=== PATIENT | male | born 1975 | race Caucasian/White ===

== ENCOUNTER 2023-06-16 13:03 | Emergency (ER) | payer OTHER ==
--- OUTSIDE RECORDS SUMMARY | 2023-06-16 13:09 | XMS REPORT | Continuity of Care Document ---
:1975 Author Organization [facility] t Address [address] [place] [address] Care Team Providers Name Role Phone GIL YAN Primary Care Physician Unavailable GIL YAN Attending Clinician Unavailable Earnest Dodge MD Attending Clinician HIREN RUCKER Attending Clinician Unavailable Johnson Rolle MD Attending Clinician Laurita Jimenes LVN Attending Clinician Unavailable Angela Arnold MD Attending Clinician Laurita Torrez RN Attending Clinician Unavailable Nasima Hagen RN Attending Clinician Unavailable Luci Wan RN Attending Clinician Unavailable Jesi Diaz LVN Attending Clinician Unavailable Kyle Lopez MD Attending Clinician GIL YAN Attending Clinician Unavailable HERLINDA SCRUGGS Attending Clinician Unavailable JODI LARSEN Attending Clinician Unavailable ALETHEA LOO Attending Clinician Unavailable GUIDO KRUGER Attending Clinician Unavailable ILDEFONSO ACUNA Attending Clinician Unavailable EITAN CRUM Attending Clinician Unavailable JUAN MUNOZ Attending Clinician Unavailable EHSAN BORDEN Attending Clinician Unavailable EDWIN MADRIGAL Attending Clinician Unavailable EKATERINA BARLOW Attending Clinician Unavailable JENNIFER HUYNH Attending Clinician Unavailable RAQUEL PEÑA Attending Clinician Unavailable EITAN CRUM Attending Clinician Unavailable JANY KAUR Attending Clinician Unavailable MIHAELA DAVEY Attending Clinician Unavailable DEVON GUO Attending Clinician Unavailable SUAD MORE Attending Clinician Unavailable GIL YAN Admitting Clinician Unavailable Payers Payer Name Policy Type Policy Number Effective Date Expiration Date Robbin goldberg [facility] [id number] [id number] 2021 ASSISTANCE PROGRAM 00:00:00 00:00:00 [employer] SSI [id number] 2021 00:00:00 TP13 SSI RECIPIENT [id number] 2020 2021 00:00:00 00:00:00 Problems Condition Condition Condition Status Onset Resolution Last Treating Co mments Source Name Details Category Date Date Treatment Clinician Date BMI BMI Disease Active [facility] 40.0-44.9, 40.0-44.9, 04-09 He alth adult adult 00:00: 00 Anxiety Anxiety Disease Active and and 04-09 Health depression depression 00:00: 00 Chronic Chronic Disease Active [facility] gout of gout of 04-09 Health multiple multiple 00:00: sites sites 00 Acute gout Acute gout Disease Active U T of of 09-11 Health multiple multiple 00:00: sites sites 00 Allergies Allergies Disease Active UT 09-11 Health 00:00: 00 Eczema Eczema Disease Active UT 09-11 Health 00:00: 00 Generalize Generalize Disease Active U T d OA d OA 09-11 Health 00:00: 00 Lumbosacra Lumbosacra Disease Active U T l l 09-11 Health radiculopa radiculopa 00:00: thy thy 00 Mixed Mixed Disease Active UT hyperlipid hyperlipid 09-11 He alth emia emia 00:00: 00 Class 3 Class 3 Disease Active UT severe severe 09-11 Health obesity obesity 00:00: due to due to 00 excess excess calories calories with with serious serious comorbidit comorbidit y and body y and body mass index mass index (BMI) of (BMI) of 50.0 to 50.0 to 59.9 in 59.9 in adult adult Chronic Chronic Disease Active [facility] idiopathic idiopathic 8-18 He alth gout gout 00:00: 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 Disease Active [facility] idiopathic idiopathic 8-18 He alth gout gout 00:00: involving involving 00 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 Gout Gout Disease Recurre [place] nce 02-05 Health 00:00: 00 Essential Essential Disease Recurre Khan rris hypertensi hypertensi nce 02-05 He alth on on 00:00: 00 Wound Wound Disease Active [place] cellulitis cellulitis 02-05 He alth 00:00: 00 Hyperglyce Hyperglyce Disease Active H arris nilam nilam 02-05 Health 00:00: 00 Elevated Elevated Disease Active Harri s serum serum 02-05 Health creatinine creatinine 00:00: 00 Cellulitis Cellulitis Disease Active H arris 02-05 Health 00:00: 00 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 0-19 Health depressive depressive 00:00: disorder disorder 00 Cannabis Cannabis Disease Active 2019-07 [facility] use use 0- Health disorder, disorder, 00:00: mild, mild, 00 abuse abuse No known No known Disease UT active active Health problems problems Allergies, Adverse Reactions, Alerts Allergy Allergy Status Severity Reaction(s) Onset Inactive Treating Comm ents Source Name Type Date Date Clinician Caroline Baerensi Active Cough UT il ty to 12-05 Health adverse 00:00: reaction 00 s No Known DA Active [facility] Allergie 08-12 Clear s 00:00: Tomas 00 [facility] Family History Family Member Diagnosis Comments Start Date Stop Date Source Natural father Hypertension [facility] Natural mother Cancer [facility] Natural mother Diabetes [facility] Social History Social Habit Start Date Stop Date Quantity Comments Source History of tobacco 1995-07-13 Cigarette Smoker [facility] use 00:00:00 Sexual orientation [facility] History of Social 2023-06-02 2023-06-02 [facility] function 00:00:00 00:00:00 Exposure to 2022-09-06 2022-09-16 Not sure [facility] SARS-CoV-2 (event) 00:00:00 16:03:00 History SDOH 2022-09-16 2022-09-16 1 [facility] Alcohol Frequency 00:00:00 00:00:00 History SDOH 2022-09-16 2022-09-16 0 [facility] Alcohol Std Drinks 00:00:00 00:00:00 History SDOH 2022-09-16 2022-09-16 1 [facility] Alcohol Binge 00:00:00 00:00:00 History SDOH Food 2022-09-16 2022-09-16 1 [facility] Worry 00:00:00 00:00:00 History SDOH Food 2022-09-16 2022-09-16 1 [facility] Scarcity 00:00:00 00:00:00 Cigarette 2022-01-20 2022-01-20 [facility] pack-years 00:00:00 00:00:00 Cigarettes smoked 2022-01-20 2022-01-20 [facility] current (pack per 00:00:00 00:00:00 day) - Reported Tobacco use and 2022-01-20 2022-01-20 Smokeless tobacco [facility] exposure 00:00:00 00:00:00 non-user Alcohol intake 2021-09-12 2021-09-[address] [facility] Health 00:00:00 00:00:00 alcohol (finding) Alcohol Comment 2021-02-05 2021-02-05 OCCASIONALLY [facility] 00:00:00 00:00:00 Tobacco Comment 2020-09-03 2020-09-03 pt not ready to [facility] 00:00:00 00:00:00 quit smoking Sex Assigned At [birth year] [facility] alth 00:00:00 00:00:00 Smoking Status Start Date Stop Date Source Smokes tobacco daily 2022-01-20 00:00:00 [facility] Medications Ordered Filled Start Stop Current Ordering Indication Dosage Frequency Signature Comments Components Source Medication Medication Date Date Medication? Clinician (SIG) Name Name methylPREDN 2022- No 80mg [place] ISolone 03-31 Health acetate 19:00: 19:17 (DEPO-Medro 00 :00 l) injection 80 mg methylPREDN 2022- No 80mg 80 mg, [facility] ISolone 03-31 Intramuscu Healt h acetate 19:00: 19:17 lar, Once, (DEPO-Medro 00 :00 On Thu) 03/31/23 at injection 1400, For 80 mg 1 dose
In dications: acute gout flare up predniSONE Yes [id number] Take 3 U T (Deltasone) 03-31 tablets Healt h 10 MG 00:00: BID for 2 tablet 00 days, than take 2 tablets BID for 2 days, than take 1 tablet BID for 2 days. colchicine 2023- Yes [id number] .6mg QD Take 1 UT (Colcrys) 03-31 tablet Health 0.6 MG 00:00: 04:59 (0.6 mg tablet 00 :00 total) by mouth 1 (one) time each day. allopurinol 2023- Yes [id number] 300mg QD Take 1 UT (Zyloprim) 03-31 tablet Health 300 MG 00:00: 04:59 (300 mg tablet 00 :00 total) by mouth 1 (one) time each day. DULoxetine 2023- Yes [id number] 60mg QD Take 1 UT (Cymbalta) 03-31 capsule Healt h [address] 00:00: 04:59 (60 mg capsule 00 :00 total) by mouth 1 (one) time each day. gabapentin 2023- Yes [id number] 300mg Q.[id number] Take 1 UT (Neurontin) 03-31 [id number] capsule Health 300 MG 00:00: 04:59 3D (300 mg capsule 00 :00 total) by mouth in the morning and 1 capsule (300 mg total) at noon and 1 capsule (300 mg total) in the evening. triamcinolo 2022- Yes [id number] Q.5D Apply UT ne 03-31 topically Health (Kenalog) 00:00: 04:59 2 (two) 0.1 % cream 00 :00 times a day for 14 days. Apply to affected area 1-2 times daily as needed. gabapentin 2022- No [id number] 300mg Q.[id number] Take 1 UT (Neurontin) 9-19 -19 [id number] capsule Health 300 MG 00:00: 00:00 3D (300 mg capsule 00 :00 total) by mouth in the morning and 1 capsule (300 mg total) at noon and 1 capsule (300 mg total) in the evening. baclofen 2022-0 Yes [id number] TAKE ONE UT (Lioresal) 6-16 TABLET BY Heal th 10 MG 00:00: MOUTH tablet 00 EVERY MORNING AND TAKE ONE TABLET BY MOUTH EVERY EVENING colchicine 2022-0 2022- No [id number] TAKE ONE UT 0.6 MG 6-16 -19 TABLET BY Health tablet 00:00: 00:00 MOUTH 00 :00 DAILY losartan-hy 0 Yes [id number] 1{tbl} QD Take 1 UT droCHLOROth 5-25 tablet by [facility] iazide 00:00: mouth 1 (Hyzaar) 00 (one) time 50-12.5 MG each day. tablet furosemide 2022-0 Yes 20mg QD Take 20 mg H arris (LASIX) 20 4-03 by mouth Healt h mg tablet 15:33: daily. 10 losartan-hy 0 Yes [id number] 1{tbl} QD Take 1 UT droCHLOROth 3-07 tablet by [facility] iazide 00:00: mouth 1 (Hyzaar) 00 (one) time 100-25 MG each day. tablet ibuprofen 2022-0 Yes [id number] 800mg Take 1 U T 800 MG 3-07 tablet Health tablet 00:00: (800 mg 00 total) by mouth every 8 (eight) hours if needed for moderate pain. ibuprofen 2022-0 Yes [id number] 800mg Take 1 U T 800 MG 3-07 tablet Health tablet 00:00: (800 mg 00 total) by mouth every 8 (eight) hours if needed for moderate pain. allopurinol 0 2023- No [id number] 300mg QD Take 1 UT (Zyloprim) 3-07 03-07 tablet Health 300 MG 00:00: 05:59 (300 mg tablet 00 :00 total) by mouth 1 (one) time each day. allopurinol 2022- No [id number] 300mg QD Take 1 UT (Zyloprim) 09-16 tablet Health 300 MG 00:00: 00:00 (300 mg tablet 00 :00 total) by mouth 1 (one) time each day. gabapentin 2022- No [id number] 300mg Take 1 UT (Neurontin) 09-16 capsule Heal th 300 MG 00:00: 00:00 (300 mg capsule 00 :00 total) by mouth every night. DULoxetine 2022- No [id number] 60mg QD Take 1 UT (Cymbalta) 09-16 capsule Healt h [address] 00:00: 00:00 (60 mg capsule 00 :00 total) by mouth 1 (one) time each day. gabapentin 2022- No [id number] 300mg Take 1 UT (Neurontin) 09-16 capsule Heal th 300 MG 00:00: 04:59 (300 mg capsule 00 :00 total) by mouth every night. DULoxetine 2022- No [id number] 60mg QD Take 1 UT (Cymbalta) 09-16 capsule Healt h [address] 00:00: 04:59 (60 mg capsule 00 :00 total) by mouth 1 (one) time each day. baclofen 2022- No [id number] 10mg Q.5D Take 1 U T (Lioresal) 09-16 tablet (10 He alth 10 MG 00:00: 04:59 mg total) tablet 00 :00 by mouth in the morning and 1 tablet (10 mg total) in the evening. loratadine Yes [id number] 10mg QD Take 1 UT (Claritin) 2-17 tablet (10 Hea lth 10 MG 00:00: mg total) tablet 00 by mouth 1 (one) time each day. loratadine 2022- No [id number] 10mg QD Take 1 UT (Claritin) 2-17 05-19 tablet (10 He alth 10 MG 00:00: 04:59 mg total) tablet 00 :00 by mouth 1 (one) time each day. losartan-hy 2022- No [id number] TAKE ONE UT droCHLOROth 2-10 07 TABLET BY He alth iazide 00:00: 00:00 MOUTH (Hyzaar) 00 :00 DAILY 100-25 MG tablet allopurinol 2022- No 300mg 300 mg. U T (Zyloprim) 08-22 Health 100 MG 00:00: 00:00 tablet 00 :00 ibuprofen 2022- No [id number] 800mg Take 1 UT 800 MG 07-18 tablet Health tablet 00:00: 00:00 (800 mg 00 :00 total) by mouth every 8 (eight) hours if needed for moderate pain. DULoxetine 2022- No [id number] 60mg QD Take 1 UT (Cymbalta) 07-18 capsule Healt h [address] 00:00: 00:00 (60 mg capsule 00 :00 total) by mouth 1 (one) time each day. furosemide 2021- No 20mg QD Take 20 mg UT (Lasix) 20 03-20 by mouth 1 He alth MG tablet 09:22: 00:00 (one) time 38 :00 each day. allopurinol 2021- No [id number] 200mg QD Take 2 UT (Zyloprim) 01-24-14 tablets Healt h 100 MG 00:00: 04:59 (200 mg tablet 00 :00 total) by mouth 1 (one) time each day. allopurinol 2021- No [id number] 200mg QD Take 2 UT (Zyloprim) 01-24-14 tablets Healt h 100 MG 00:00: 04:59 (200 mg tablet 00 :00 total) by mouth 1 (one) time each day. allopurinol 2021- No [id number] 200mg QD Take 2 UT (Zyloprim) 01-24-14 tablets Healt h 100 MG 00:00: 04:59 (200 mg tablet 00 :00 total) by mouth 1 (one) time each day. furosemide Yes 20mg QD Take 20 mg U T (Lasix) 20 7-11 by mouth 1 Hea lth MG tablet 08:09: (one) time 06 each day. furosemide Yes 20mg QD Take 20 mg U T (Lasix) 20 7-11 by mouth 1 Hea lth MG tablet 08:09: (one) time 06 each day. furosemide Yes 20mg QD Take 20 mg U T (Lasix) 20 7-11 by mouth 1 Hea lth MG tablet 08:09: (one) time 06 each day. furosemide 0 Yes 20mg QD Take 20 mg U T (Lasix) 20 7-11 by mouth 1 Hea lth MG tablet 08:09: (one) time 06 each day. Elastic Yes [id number] Fixed UT Bandages & 01-20 [id number] neutral Heal th Supports 00:00: wrist (Wrist 00 splint to Splint/Cock be worn at -Up/Right night M) misc during sleep only. Elastic Yes [id number] Fixed [facility] Bandages & 01-20 [id number] neutral Heal th Supports 00:00: wrist (Wrist 00 splint to Splint/Cock be worn at -Up/Left M) night misc during sleep only. Elastic Yes [id number] Fixed [facility] Bandages & 01-20 [id number] neutral Heal th Supports 00:00: wrist (Wrist 00 splint to Splint/Cock be worn at -Up/Right night M) misc during sleep only. Elastic Yes [id number] Fixed [facility] Bandages & 01-20 [id number] neutral Heal th Supports 00:00: wrist (Wrist 00 splint to Splint/Cock be worn at -Up/Left M) night misc during sleep only. Elastic Yes [id number] Fixed [facility] Bandages & 01-20 [id number] neutral Heal th Supports 00:00: wrist (Wrist 00 splint to Splint/Cock be worn at -Up/Right night M) misc during sleep only. Elastic Yes [id number] Fixed [facility] Bandages & 01-20 [id number] neutral Heal th Supports 00:00: wrist (Wrist 00 splint to Splint/Cock be worn at -Up/Left M) night misc during sleep only. Elastic Yes [id number] Fixed [facility] Bandages & 01-20 [id number] neutral Heal th Supports 00:00: wrist (Wrist 00 splint to Splint/Cock be worn at -Up/Right night M) misc during sleep only. Elastic Yes [id number] Fixed UT Bandages & 11 [id number] neutral Heal th Supports 00:00: wrist (Wrist 00 splint to Splint/Cock be worn at -Up/Left M) night misc during sleep only. amLODIPine No [id number] 5mg QD Take 1 UT ([facility]vas) 5 01-15 tablet (5 He alth MG tablet 00:00: 00:00 mg total) 00 :00 by mouth 1 (one) time each day. amLODIPine No [id number] 5mg QD Take 1 [facility] ([facility]) 5 01-15 tablet (5 He alth MG tablet 00:00: 05:59 mg total) 00 :00 by mouth 1 (one) time each day. amLODIPine [id number] 5mg QD Take 1 [facility] ([facility]) 5 01-15 tablet (5 He alth MG tablet 00:00: 05:59 mg total) 00 :00 by mouth 1 (one) time each day. amLODIPine No [id number] 5mg QD Take 1 [facility] ([facility]) 5 01-15 tablet (5 He alth MG tablet 00:00: 05:59 mg total) 00 :00 by mouth 1 (one) time each day. amLODIPine No [id number] 5mg QD Take 1 [facility] ([facility]) 5 01-15 tablet (5 He alth MG tablet 00:00: 05:59 mg total) 00 :00 by mouth 1 (one) time each day. losartan- No [id number] 1{tbl} QD Take 1 UT droCHLOROth 01-15 tablet by He alth iazide 00:00: 04:59 mouth 1 (Hyzaar) 00 :00 (one) time 100-25 MG each day. tablet losartan-hy No [id number] 1{tbl} QD Take 1 UT droCHLOROth 01-15 tablet by He alth iazide 00:00: 04:59 mouth 1 (Hyzaar) 00 :00 (one) time 100-25 MG each day. tablet losartan- No [id number] 1{tbl} QD Take 1 UT droCHLOROth 7- 10-05 tablet by He alth iazide 00:00: 04:59 mouth 1 (Hyzaar) 00 :00 (one) time 100-25 MG each day. tablet losartan-hy 2021- No [id number] 1{tbl} QD Take 1 UT droCHLOROth 7- 10-05 tablet by He alth iazide 00:00: 04:59 mouth 1 (Hyzaar) 00 :00 (one) time 100-25 MG each day. tablet sulfamethox 2021- No [id number] 1{tbl} Q.5D Take 1 UT azole-trime 01-15 07-17 tablet by He alth thoprim 00:00: 04:59 mouth in (Bactrim 00 :00 the DS) 800-160 morning MG tablet and 1 tablet in the evening. Do all this for 10 days. colchicine 2022- No [id number] .6mg QD Take 1 UT 0.6 MG 7-11 10-02 tablet Health tablet 00:00: 05:59 (0.6 mg 00 :00 total) by mouth 1 (one) time each day. colchicine 2022- No [id number] .6mg QD Take 1 UT 0.6 MG 7-11 10-02 tablet Health tablet 00:00: 05:59 (0.6 mg 00 :00 total) by mouth 1 (one) time each day. colchicine 2022- No [id number] .6mg QD Take 1 UT 0.6 MG 7-11 10-02 tablet Health tablet 00:00: 05:59 (0.6 mg 00 :00 total) by mouth 1 (one) time each day. colchicine 2022- No [id number] .6mg QD Take 1 UT 0.6 MG 7-05 -02 tablet Health tablet 00:00: 05:59 (0.6 mg 00 :00 total) by mouth 1 (one) time each day. colchicine 2022- No [id number] .6mg QD Take 1 UT 0.6 MG 7-11 10-02 tablet Health tablet 00:00: 05:59 (0.6 mg 00 :00 total) by mouth 1 (one) time each day. baclofen 2-0 Yes [id number] 10mg Q.5D Take 1 UT (Lioresal) 5-26 tablet (10 Hea lth 10 MG 00:00: mg total) tablet 00 by mouth 2 (two) times a day. ibuprofen 2-0 Yes [id number] 800mg Take 1 U T 800 MG 5-26 tablet Health tablet 00:00: (800 mg 00 total) by mouth every 8 (eight) hours if needed for moderate pain. baclofen 2022-0 Yes [id number] 10mg Q.5D Take 1 UT (Lioresal) 5-26 tablet (10 Hea lth 10 MG 00:00: mg total) tablet 00 by mouth 2 (two) times a day. ibuprofen 2021-0 Yes [id number] 800mg Take 1 U T 800 MG 5-26 tablet Health tablet 00:00: (800 mg 00 total) by mouth every 8 (eight) hours if needed for moderate pain. baclofen 2-0 Yes [id number] 10mg Q.5D Take 1 UT (Lioresal) 5-26 tablet (10 Hea lth 10 MG 00:00: mg total) tablet 00 by mouth 2 (two) times a day. ibuprofen 2-0 Yes [id number] 800mg Take 1 U T 800 MG 5-26 tablet Health tablet 00:00: (800 mg 00 total) by mouth every 8 (eight) hours if needed for moderate pain. ibuprofen 2-0 Yes [id number] 800mg Take 1 U T 800 MG 5-26 tablet Health tablet 00:00: (800 mg 00 total) by mouth every 8 (eight) hours if needed for moderate pain. baclofen 2-0 Yes [id number] 10mg Q.5D Take 1 UT (Lioresal) 5-26 tablet (10 Hea lth 10 MG 00:00: mg total) tablet 00 by mouth 2 (two) times a day. ibuprofen 2022-0 Yes [id number] 800mg Take 1 U T 800 MG 5-26 tablet Health tablet 00:00: (800 mg 00 total) by mouth every 8 (eight) hours if needed for moderate pain. baclofen 2022-0 2023- No [id number] 10mg Q.5D Take 1 U T (Lioresal) 5-26 03-07 tablet (10 He alth 10 MG 00:00: 00:00 mg total) tablet 00 :00 by mouth 2 (two) times a day. gabapentin No [id number] 300mg Take 1 UT (Neurontin) 12-05- capsule Heal th 300 MG 00:00: 00:00 (300 mg capsule 00 :00 total) by mouth every night. DULoxetine No [id number] 60mg QD Take 1 UT (Cymbalta) 12-05 capsule Healt h [address] 00:00: 05:59 (60 mg capsule 00 :00 total) by mouth 1 (one) time each day. allopurinol No [id number] 100mg QD Take 1 UT (Zyloprim) 12-05 tablet Health 100 MG 00:00: 05:59 (100 mg tablet 00 :00 total) by mouth 1 (one) time each day. gabapentin No [id number] 300mg Take 1 UT (Neurontin) 12-05 capsule Heal th 300 MG 00:00: 05:59 (300 mg capsule 00 :00 total) by mouth every night. DULoxetine No [id number] 60mg QD Take 1 UT (Cymbalta) 12-05 capsule Healt h [address] 00:00: 05:59 (60 mg capsule 00 :00 total) by mouth 1 (one) time each day. allopurinol No [id number] 100mg QD Take 1 UT (Zyloprim) 12-05 tablet Health 100 MG 00:00: 05:59 (100 mg tablet 00 :00 total) by mouth 1 (one) time each day. gabapentin No [id number] 300mg Take 1 UT (Neurontin) 12-05 capsule Heal th 300 MG 00:00: 05:59 (300 mg capsule 00 :00 total) by mouth every night. DULoxetine 2021- No [id number] 60mg QD Take 1 UT (Cymbalta) 12-05 capsule Healt h [address] 00:00: 05:59 (60 mg capsule 00 :00 total) by mouth 1 (one) time each day. gabapentin 2021- No [id number] 300mg Take 1 UT (Neurontin) 12-05 capsule Heal th 300 MG 00:00: 05:59 (300 mg capsule 00 :00 total) by mouth every night. DULoxetine 2021- No [id number] 60mg QD Take 1 UT (Cymbalta) 12-05 capsule Healt h [address] 00:00: 05:59 (60 mg capsule 00 :00 total) by mouth 1 (one) time each day. gabapentin 2021- No [id number] 300mg Take 1 UT (Neurontin) 12-05 capsule Heal th 300 MG 00:00: 05:59 (300 mg capsule 00 :00 total) by mouth every night. DULoxetine 2021- No [id number] 60mg QD Take 1 UT (Cymbalta) 12-05 capsule Healt h [address] 00:00: 05:59 (60 mg capsule 00 :00 total) by mouth 1 (one) time each day. gabapentin 2021- No [id number] 300mg Take 1 UT (Neurontin) 12-05 capsule Heal th 300 MG 00:00: 05:59 (300 mg capsule 00 :00 total) by mouth every night. losartan 2021- No [id number] 100mg QD Take 1 U T (Cozaar) 12-05- tablet Health 100 MG 00:00: 00:00 (100 mg tablet 00 :00 total) by mouth 1 (one) time each day. loratadine Yes UT (Claritin) 5-20 Health 10 MG 00:00: tablet 00 loratadine Yes UT (Claritin) 5-20 Health 10 MG 00:00: tablet 00 loratadine Yes UT (Claritin) 5-20 Health 10 MG 00:00: tablet 00 loratadine Yes UT (Claritin) 5-20 Health 10 MG 00:00: tablet 00 loratadine Yes UT (Claritin) 5-20 Health 10 MG 00:00: tablet 00 atorvastati Yes UT n (Lipitor) 3-07 Health 20 MG 00:00: tablet 00 atorvastati Yes UT n (Lipitor) 09-16 Health 20 MG 00:00: tablet 00 atorvastati 0 Yes UT n (Lipitor) 09-16 Health 20 MG 00:00: tablet 00 atorvastati 0 Yes UT n (Lipitor) 09-16 Health 20 MG 00:00: tablet 00 atorvastati Yes Mixed 20mg Take 1 Jose J ris n (LIPITOR) 09-16 hyperlipide tablet by [facility] 20 mg 00:00: nilam mouth at tablet 00 bedtime nightly atorvastati 0 2021- No UT n (Lipitor) 09-16 09 Health 20 MG 00:00: 00:00 tablet 00 :00 amLODIPine Yes Hypertensio 5mg QD Take 1 Mark (NORVASC) 5 3 n, tablet by [facility] mg tablet 00:00: unspecified mouth 00 type daily allopurinoL Yes Idiopathic 100mg QD Take 1 Mark (ZYLOPRIM) 3 gout, tablet by [facility] lt 100 mg 00:00: unspecified mouth tablet 00 chronicity, daily unspecified site colchicine Yes .6mg QD Take 1 Harri s (COLCRYS) 303 tablet by [facility] 0.6 mg 00:00: mouth tablet 00 daily losartan Yes Essential 100mg QD Take 1 H arris (COZAAR) 3 hypertensio tablet by [facility] 100 mg 00:00: n mouth tablet 00 daily. DULoxetine Yes Recurrent 60mg QD Take 1 Mark (CYMBALTA) 2-22 major capsule by [facility] 60 mg 00:00: depressive mouth delayed 00 disorder, daily release in capsule remission gabapentin Yes Lumbosacral 300mg Take 1 Mark (NEURONTIN) 2-11 radiculopat capsule by [facility] 300 mg 00:00: hy mouth 3 capsule 00 times daily. ibuprofen Yes Generalized 800mg Take 1 Mark (MOTRIN) 2-11 OA tablet by [facility] 800 mg 00:00: mouth tablet 00 every 8 hours as needed for Pain loratadine Yes Allergy, 10mg QD Take 1 H arris (CLARITIN) 8-23 initial tablet by ealth 10 mg 00:00: encounter mouth tablet 00 daily. Miscellaneo Yes Acute gout by [facility] 03-04 of universal health services Mis.(Non- Health Supply Mis 00:00: sites, Drug; 00 unspecified Combo cause Route) route PARKING PLACARD.. Miscellaneo Yes Difficulty Walker.. [facility] 03-04 walking Health Supply [facility] [place]: 00 aspirin 325 Yes 325mg Q.5D Take 325 U T MG tablet 7-31 mg by [facility] 00:00: mouth 00 twice a day. aspirin 325 Yes 325mg Q.5D Take 325 U T MG tablet 7-31 mg by [facility] 00:00: mouth 00 twice a day. aspirin 325 Yes 325mg Q.5D Take 325 U T MG tablet 7-31 mg by [facility] 00:00: mouth 00 twice a day. aspirin 325 Yes 325mg Q.5D Take 325 U T MG tablet 7-31 mg by [facility] 00:00: mouth 00 twice a day. aspirin 325 Yes 325mg Q.5D Take 325 U T MG tablet 7-31 mg by [facility] 00:00: mouth 00 twice a day. aspirin 325 Yes Wound 325mg Q.5D Take 1 rris mg tablet 7-31 cellulitis tablet by [facility] 00:00: mouth 2 00 times daily. traMADoL Yes Wound 50mg Take 1 [place] (ULTRAM) 50 7-31 cellulitis tablet by [facility] mg tablet 00:00: mouth 00 every 8 hours as needed (breakthro ugh pain). baclofen Yes Back muscle 10mg Q.5D Take 1 [place] (LIORESAL) 5-27 spasm tablet by [facility] lt 10 mg 00:00: mouth 2 tablet 00 times daily. 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 cream loratadine Yes Allergic 10mg QD Take 1 H arris (CLARITIN) 5-28 state, tablet by He alth 10 mg 00:00: initial mouth tablet 00 encounter daily. Immunizations Ordered Immunization Filled Immunization Date Status Commen ts Source Name Name Tdap 2018-07-13 Completed [facility] 00:00:00 Tdap 2018-07-13 Completed [facility] 00:[facility]:00 Tdap 2018-07-13 Completed [facility] 00:00:00 Tdap 2018-07-13 Completed [facility] 00:00:00 Tdap 2018-07-13 Completed [facility] 00:00:00 Tdap 2018-07-13 Completed [facility] 00:00:00 Tdap Unknown Completed [facility] Vital Signs Vital Name Observation Time Observation Value Comments Source Systolic blood pressure 2023-03-31 18:35:00 136 mm[Hg] [facility] Diastolic blood pressure 2023-03-31 18:35:00 80 mm[Hg] [facility] Heart rate 2023-03-31 18:35:00 81 [facility] 2023-03-31 18:35:00 36.67 [place] weight 2023-03-31 18:35:00 145.196 [facility] BMI 2023-03-31 18:35:00 44.64 kg/m2 [facility] Systolic blood pressure 2022-09-16 22:14:00 114 mm[Hg] [facility] Diastolic blood pressure 2022-09-16 22:14:00 75 mm[Hg] [facility] Heart rate 2022-09-16 22:14:00 94 /min [facility] Body temperature 2022-09-16 22:14:00 36.22 [place] [facility] Body height 2022-09-16 22:14:00 180.3 cm [facility] Body weight 2022-09-16 22:14:00 162.932 [facility] BMI 2022-09-16 22:14:00 50.10 kg/m2 [facility] Systolic blood pressure 2022-03-20 14:24:00 138 mm[Hg] [facility] Diastolic blood pressure 2022-03-20 14:24:00 76 mm[Hg] [facility] Heart rate 2022-03-20 14:24:00 74 /min [facility] Body temperature 2022-03-20 14:24:00 36.28 [facility] Respiratory rate 2022-03-20 14:24:00 18 /min [facility] Body height 2022-03-20 14:24:00 180.3 cm [facility] Body weight 2022-03-20 14:24:00 177.81 [facility] BMI 2022-03-20 14:24:00 54.67 kg/m2 [facility] Systolic blood pressure 2022-01-31 14:21:00 149 mm[Hg] [facility] Diastolic blood pressure 2022-01-31 14:21:00 83 mm[Hg] [facility] Heart rate 2022-01-31 14:21:00 81 /min [facility] Body temperature 2022-01-31 14:21:00 36.61 [facility] Body height 2022-01-31 14:21:00 180.3 cm [facility] Body weight 2022-01-31 14:21:00 189.105 [facility] BMI 2022-01-31 14:21:00 58.15 kg/m2 [facility] Procedures This patient has no known procedures. Plan of Care Planned Activity Planned Date Details Comments Source Future Scheduled Test 2023-03-13 IMM Influenza Seasonal [facility] 00:00:00 (>/= 19 yrs) [code = IMM Influenza Seasonal (>/= 19 yrs)] Future Scheduled Test 1980 Imm Pneumococcal 0-64 [facility] 00:00:00 (1 - PCV) [code = Imm Pneumococcal 0-64 (1 - PCV)] Future Scheduled Test 1976-03-09 COVID-19 Vaccine (#1) [facility] 00:00:00 [code = COVID-19 Vaccine (#1)] Encounters Start End Encounter Admission Attending Care Care Encounter Source Date/Time Date/Time Type Type Clinicians Facility Department ID 2023-02-10 Outpatient [facility] [id number] [place] 06:34:16 [id number] [facility] 2022-12-04 Outpatient [facility] [id number] [place] 12:55:21 [id number] [facility] 2022-09-18 Outpatient [facility] [id number] [place] 14:32:08 [id number] [facility] 2022-08-29 Outpatient [facility] [id number] [place] 14:14:53 [id number] [facility] 2022-07-18 Outpatient [facility] [id number] [place] 18:43:24 [id number] [facility] 2020-04-24 Inpatient [id number] 10[facility]00:00 GIL [facility] 2023-03-31 2023-03-31 Office TANIKA Dodge [id number] [place] 13:30:00 14:17:10 Visit Earnest [facility] [id number] H ealth CLINIC 9.2.7.2.686 [id number] 1 2023-03-19 2023-03-19 [facility] [id number] [place] 10:00:00 10:00:00 [facility] 2023-02-17 2023-02-17 [facility] [id number] [place] 13:30:00 13:30:00 [facility] 2022-09-16 2022-09-16 Office TANIKA Dodge [id number] [place] 16:00:00 16:50:54 Visit Earnest JENSENDWAINE 350.1.13.58 H ealth CLINIC 9.2.7.2.686 [id number] 1 2022-09-16 2022-09-16 [facility] [id number] [place] 10:00:00 10:00:00 [facility] 2022-03-20 2022-03-20 Office TANIKA Dodge [id number] [id number] [place] 09:15:00 09:45:15 Visit Earnest [facility] [id number] H ealth CLINIC 9.2.7.2.686 [id number] 1 2022-01-31 2022-01-31 Office TANIKA Rolle 1.2.840.114 [id number] [place] 09:00:00 09:24:00 Visit Johnson [facility] 350.1.13.58 H ealth MULTI 9.2.7.2.686 SPECIALTY [id number] CLINIC 0 2022-01-30 2022-01-30 Telephone Laurita Jimenes UTP 1.2.840 .114 [id number] [place] 00:00:00 00:00:00 Laurita Jimenes 350.1.13.58 Health MULTI 9.2.7.2.686 SPECIALTY [id number] CLINIC 1 2022-01-20 2022-01-20 Office Catalina TANIKA 1.2.840.114 [id number] [place] 08:00:00 09:37:55 Visit Yobanyalpanda [facility] 350.1.13.58 H [facility] 9.2.7.2.686 SPECIALTY [id number] CLINIC 1 2022-01-20 2022-01-20 Telephone Laurita Torrez TANIKA [place] 1.2.84 0.114 [id number] [place] 00:00:00 00:00:00 Laurita Torrez 350.1.13.58 Health MEDICAL 9.2.7.2.686 CENTER [id number] 0 2022-01-15 2022-01-15 Office Tess TANIKA 1.2.840.114 [id number] [place] 11:00:00 11:39:04 Visit Earnest [facility] 350.1.13.58 H [facility] CLINIC 9.2.7.2.686 [id number] 1 2022-01-14 2022-01-14 Telephone Nasima Hagen UTP 1.2.840.11 [id number] [place] 00:00:00 00:00:00 [facility].1.13.58 Health CLINIC 9.2.7.2.686 [id number] 1 2022-01-02 2022-01-02 Telephone Luci Wan PARK 1.2.840. 114 [id number] [place] 00:00:00 00:00:00 Luci Wan 350.1.13.58 Health MEDICAL 9.2.7.2.686 CENTER [id number] 2022-01-02 2022-01-02 Telephone CourtneyJesi Jorge UTP 1. 2.840.114 [id number] [place] 00:00:00 00:00:00 Courtney Jesi Radford [place] 350.1.1 3.58 Health [facility] 9.2.7.2.686 SPECIALTY [id number] CLINIC 6 2021-12-12 2021-12-12 Consult Jessica, UTP [id number] [id number] [place] 15:00:00 15:15:00 [facility] 9.2.7.2.686 SPECIALTY [id number] CLINIC 6 2021-12-05 2021-12-05 Office Tess, UTP 1.2.840.114 [id number] [place] 09:30:00 10:33:58 Visit Earnest [facility] 350.1.13.58 [facility] 9.2.7.2.686 [id number] 1 2021-11-07 2021-11-07 [facility] [id number] [place] 00:00:00 00:00:00 [facility] 2021-09-12 2021-09-12 Outpatient [facility] [id number] [place] 10:59:34 11:00:20 [facility] 2021-09-12 2021-09-12 [facility] [id number] [place] 10:23:00 10:58:08 [facility] 2021-09-12 2021-09-12 [facility] [id number] [place] 00:00:00 00:00:00 [facility] 2021-09-03 2021-09-03 Outpatient HERLINDA SCRUGGS [facility] [id number] [place] 13:42:30 14:17:11 [facility] 2021-05-01 2021-05-01 [facility] [id number] [place] 00:00:00 00:00:00 [facility] 2021-04-09 2021-04-09 [facility] [id number] [place] 06:00:23 14:46:[address] [facility] 2021-03-28 2021-03-28 Outpatient [facility] [id number] [place] 00:00:00 00:00:00 [facility] 2021-03-27 2021-03-27 [facility] [id number] [place] 12:33:16 13:03:03 [facility] 2021-03-19 2021-03-19 Outpatient [facility] [id number] [place] 00:00:00 00:00:00 [facility] 2021-03-12 2021-03-12 Outpatient EZE, [facility] [id number] [place] 06:03:47 13:22:[address] [facility] 2021-03-12 2021-03-12 Outpatient YAN, [facility] [id number] [place] 00:00:00 00:00:00 [facility] 2021-03-04 2021-03-04 [facility] [id number] [place] 08:12:32 08:56:53 [facility] 2021-03-04 2021-03-04 Outpatient FARRAH, [facility] [id number] [place] 00:00:00 00:00:00 [facility] 2021-02-27 2021-02-27 Outpatient ILDEFONSO ACUNA [facility] [id number] [place] 10:14:43 12:06:33 [facility] 2021-02-15 2021-02-15 Outpatient SKYLA, [facility] [id number] [place] 00:00:00 00:00:00 [facility] 2021-02-12 2021-02-12 Outpatient ALEXANDER, [facility] [id number] [place] 00:00:00 00:00:00 [facility] 2021-02-05 2021-02-[address] [facility] [id number] [place] 00:16:00 15:30:00 Health 2021-02-08 2021-02-08 Outpatient [facility] [id number] [place] 05:00:42 05:00:44 [facility] 2021-02-08 2021-02-08 [facility] [id number] [place] 00:00:00 00:00:[address] [facility] 2021-02-08 2021-02-08 Outpatient KAITLIN, [facility] [id number] [place] 00:00:00 00:00:[address] [facility] 2021-02-07 2021-02-07 Outpatient CHAVA, [facility] [id number] [place] 17:47:20 18:26:05 [facility] 2021-02-06 2021-02-06 Outpatient [facility] [id number] [place] 21:52:46 21:52:47 [facility] 2021-02-05 2021-02-05 Emergency [facility] [id number] [place] 02:20:06 02:20:08 Health 2021-02-04 2021-02-04 Emergency [facility] [id number] [place] 23:33:44 23:49:45 Health 2021-01-25 2021-01-25 [facility] [id number] [place] 09:22:00 11:11:00 EKATERINA Underwood 2021-01-25 2021-01-25 Outpatient [facility] [id number] [place] 00:49:07 01:26:54 Health 2020-12-25 2020-12-25 Outpatient [facility] [id number] [place] 00:00:00 00:00:00 Health 2020-12-25 2020-12-25 Outpatient [facility] [id number] [place] 00:00:00 00:00:00 [facility] 2020-12-20 2020-12-20 Outpatient AMINA, [facility] [id number] [place] 07:39:09 09:54:39 [facility] 2020-12-06 2020-12-06 Outpatient FARRAH, [facility] [id number] [place] 12:56:13 13:40:46 [facility] 2020-12-04 2020-12-04 Outpatient HERLINDA SCRUGGS [facility] [id number] [place] 07:21:41 15:22:00 [facility] 2020-11-26 2020-11-26 [facility] [id number] [place] 20:58:00 23:10:00 [facility] 2020-11-26 2020-11-26 Emergency [facility] [id number] [place] 16:33:06 16:41:33 [facility] 2020-11-21 2020-11-21 [facility] [id number] [place] 08:11:18 10:50:02 [facility] 2020-11-01 2020-11-01 Outpatient [facility] [id number] [place] 00:00:00 00:00:00 [facility] 2020-10-30 2020-10-30 Outpatient NATASHA, [facility] [id number] [place] 08:55:14 08:55:14 [facility] 2020-10-25 2020-10-25 Outpatient CUNHA [facility] [id number] [place] 09:35:41 12:12:17 Dominick ALVAREZA 2020-10-05 2020-10-05 [facility] [id number] [place] 08:43:19 09:14:58 [facility] 2020-10[facility] 2020-10-04 Outpatient HERLINDA SCRUGGS [facility] [id number] [place] 07:02:22 14:56:39 Health 2020-09-08 2020-09-08 [facility] [id number] [place] 12:51:00 14:12:00 USAD [facility] 2020-09-03 2020-09-03 [facility] [id number] [place] 13:16:37 14:18:[facility]-08[facility] 2020-08-29 Outpatient HERLINDA SCRUGGS [facility] [id number] [place] 00:00:00 00:00:00 Health 2020-08-14 2020-08-14 Outpatient KAEL HERLINDA [facility] [id number] [place] 07:23:41 09:42:43 Health Results Test Description Test Time Test Comments Results Result [facility] e Comments - MRI L-SPINE W/O 2020-04-26 CONT 13:42:00 [facility] : 1975 Sex: M Pa tient Name: ADRIA QUINTANA Unit No: [id number] EXAMS: CPT CODE: [id number] MRI L-SPINE W/O CONT 61084 MRI Lumbar Spine without contrast Location: A1 HISTORY: Low back pain, lumbosacral radiculopathy COMPARISON: None available TECHNIQUE: Sagittal T1, T2, STIR, and axial T2 weighted images of the lumbar spine were obtained without contrast. FINDINGS Lumbar alignment is maintained. 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 Conus medullaris terminates at the L1 level and is normal in signal intensity and caliber. Vertebral body heights are maintained. Type II fatty endplate marrow changes are present at L5-S1. No bone marrow edema is present. There is loss of normal signal within disc spaces throughout the lumbar spine. Annular fissures and disc protrusions are present at the L2-L3, L3-L4, L4-L5 and L5-S1 levels. Paraspinal soft tissues and visualized intra-abdominal contents are within normal limits. T12-L1: The disc is normal in configuration. There is no canal or foraminal stenosis. L1-L2: Disc is normal in configuration. There is mild facet hypertrophy. There is mild narrowing of the thecal sac. There is no foraminal narrowing. L2-L3: Annular disc bulging with left foraminal disc protrusion measuring up to 3 mm. Moderate bilateral facet arthropathy and ligamentum flavum hypertrophy. Moderate circumferential narrowing of the thecal sac. There is mild right and moderate to severe left foraminal narrowing and impingement of the exiting left L2 nerve root. L3-L4: Annular disc bulging with a superimposed left foraminal disc protrusion measuring 4 to 5 mm. There is moderate bilateral facet arthropathy and ligament flavum hypertrophy. Severe left foraminal narrowing and impingement of the exiting left L3 nerve root. There is mild right foraminal narrowing. There is mild to moderate canal stenosis. L4-L5: There is annular disc bulging with superimposed central disc protrusion measuring 2 to 3 mm. There is moderate to severe bilateral facet arthropathy. There is lateral recess narrowing and displacement of traversing bilateral L5 nerve roots. There is moderate circumferential narrowing of the thecal sac. There is moderate foraminal narrowing and probable contact of exiting L4 nerve roots. L5-S1: Annular disc bulging with a right subarticular/foramina l disc Name: ADRIA QUINTANA [facility] Phys: UNDEFINED - Undefined Provider [address]els [address] : 1975 Age: 44 Sex: [place] [address] Loc: P.MRI Exam Date: 04/26/2020 Status: REG CLI PH: FAX: PAGE 1 Signed Report (CONTINUED) Patient Name: STEPHANIEADRIA CLAIRE Unit No: [id number] EXAMS: CPT CODE: [id number] MRI L-SPINE W/O CONT 05165 <Continued> protrusion measuring 5 mm. There is moderate to severe bilateral facet arthropathy. There is moderate left and severe right foraminal narrowing and impingement of the exiting L5 nerve roots. There is mild to moderate circumferential narrowing of the thecal sac. There is displacement of traversing right S1 nerve root. IMPRESSION: 1. 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 2. Left foraminal disc protrusions at the L2-L3 and L3-L4 levels with impingement of the exiting left L2 and L3 nerve roots. 3. Central disc protrusion at L4-L5 displacing traversing bilateral L5 nerve roots. There is also moderate foraminal narrowing and contact of exiting bilateral L4 nerve roots. 4. Spondylosis and facet arthrosis at L5-S1 with right subarticular/foramina l disc protrusion with impingement of exiting bilateral L5 and displacement of traversing right S1 nerve roots. at 1342 Reported and signed by: VIRI UMANA M.D. CC: Undefined Provider Technologist: Chan Smyth Dt/Tm: 04/26/2020 (2652) by:[email or web address] Printed Date/Time: 04/26/2020 (0407) Name: ADRIA QUINTANA [facility] Phys: UNDEFINED - Undefined Provider [address] : 1975 Age: 44 Sex: [place] [address] Loc: P.MRI Exam Date: 04/26/2020 Status: REG CLI PH: FAX: PAGE 2 Signed Report BREAST ULTRASOUND 2019-08-19 - BREAST ULTRASOUND LEFT 11:45:42 LEFTULTRASOUND OF LEFT BREAST: 08/19/2019CLINICAL: Left breast mass. Comparison is made to exam dated 08/19/2019 mammogram - [facility]. Color flow and real-time ultrasound of the left breast were performed. Crooks scale images of the real-time examination were reviewed. Targeted ultrasound, at the site of palpable area of concern at 7 o'clock, 7 cm from the nipple, demonstrates an oval, circumscribed, hyperechoic mass that measures 32 mm correlating with the mammographic mass and is consistent with a lipoma, benign.IMPRESSION: BENIGN Lipoma, benign. No further imaging required. There is no sonographic evidence of malignancy. Clinical follow up is also recommended, and further management of palpable abnormalities should be based on clinical examination.Abhishek Dugan M.D. ss/:08/19/2019 11:45:42 Entry: [facility] 08/29/2019 11:02:48Imaging Technologist: LINDA STONE, [facility] sent: BIRADS 1-2 Combo FU Letter Ultrasound BI-RADS: 2 Benign DIAG MAMM 2019-08-19 - DIAG MAMM BILATERAL MEL CAD 11:44:32 BILATERAL MEL CAD DIGITAL DIGITALMALE BILATERAL FIRST EVER DIGITAL DIAGNOSTIC MAMMOGRAM 3D/2D WITH CAD: 08/19/2019CLINICAL: Left breast lump. Digital breast tomosynthesis was performed in addition to routine CC and MLO views. Current mammographic images were evaluated by either a link bird M-Vu or a Voxify CAD (computer aided detection system). No prior exams were available for comparison. A palpable marker is placed at the site of clinical area of concern in the left breast at 7 o'clock, anterior depth and an oval, encapsulated fatty mass is noted consistent with a lipoma, benign. No suspicious mass, architectural distortion, malignant type calcification, or lymph node abnormality detected. IMPRESSION: INCOMPLETE: ADDITIONAL IMAGING EVALUATION NEEDEDLipoma, benign. There is no mammographic evidence of malignancy. Please refer to the ultrasound report as well. Clinical follow up is also recommended, and further management of palpable abnormalities should be based on clinical examination.Abhishek Dugan M.D. ss/:08/19/2019 11:44:32 Entry: [facility] 08/26/2019 14:58:37Imaging Technologist: Elaine STONE, [facility] BI-RADS: 0 Incomplete: Additional Imaging Evaluation Needed - XR L-SPINE 08/152019-01-04 FAX: Syd Van VIEWS 18:21:00 [place]: St: REG Name: ADRIA QUINTANA [facility] Jes Tomas : 1975 Age/S: 43/M [address] [place] [address] Unit #: [id number] Loc: [place] [address] Phys: Syd Madrigal MD Acct: [id number] Dis Date: Status: REG CLI PHONE #: [phone] Exam Date: 01/04/2019 180 FAX #: [phone] Reason: LOW BACK PAIN EXAMS: CPT CODE: [id number] XR L-SPINE 2/3 VIEWS [id number] 3 VIEWS OF THE LUMBAR SPINE HISTORY: Low back pain. COMPARISON: 08/12/2011 lumbar spine x-ray. There are 5 lumbar vertebra are in normal alignment. There is disc space narrowing L5-S1 which has developed since the July 2011 exam. Mild disc space narrowing at L4-5 also new in this 7 year interval. Remaining disc spaces are maintained. Vertebral body height normal. SI joints normal. IMPRESSION: Degenerative disc changes L4-5 and L5-S1. END IMPRESSION SL: [id number] at 1821 Reported and signed by: Pepito Quintana M.D. CC: Syd Madrigal MD Technologist: RT Chiquita(R) Trnscrd Date/Time/By: 01/04/2019 (1820) : By: Audrey Orig Print D/T: S: 01/04/2019 (1823) PAGE 1 Signed Report
--- NOTE | 2023-06-16 13:37 | ER ---
Nurse's Notes [facility] Name: Peter Quintana Age: 47 yrs Sex: Male : 1975 Arrival Date: 06/16/2023 Time: 13:03 Bed 14 Private MD: Diagnosis: Cutaneous abscess of back [any part, except buttock] Presentation: 06/16 13:11 Chief complaint: Patient states: Abscess to lower back for 3-4 days getting worse. + ll1 weakness. No known fever. Coronavirus screen: Client denies travel out of the [place] in the last 14 days. At this time, the client does not indicate any symptoms associated with coronavirus-19. Ebola Screen: Patient denies travel to an Ebola-affected area in the 21 days before illness onset. Initial Sepsis Screen: Does the patient meet any 2 criteria? No. Patient's initial sepsis screen is negative. Does the patient have a suspected source of infection? Yes: Skin breakdown/wound. Risk Assessment: Do you want to hurt yourself or someone else? Patient reports no desire to harm self or others. Onset of symptoms was June 12, 2023. 13:11 Method Of Arrival: Ambulatory ll1 13:11 Acuity: SHRUTHI 3 ll1 Triage Assessment: 13:13 General: Appears uncomfortable, Behavior is calm, cooperative, appropriate for age. ll1 Pain: Complains of pain in low back area Quality of pain is described as aching. Derm: Abscess located on low back area. Musculoskeletal: Circulation, motion, and sensation intact. Capillary refill < 3 seconds. 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 - Social history:: Smoking status: Patient reports the use of cigarette tobacco products, smokes one-half pack cigarettes per day. Assessment: 13:55 Reassessment: Patient is alert, oriented x 3, equal unlabored respirations, skin aa5 warm/dry/pink. Vital Signs: 13:11 BP 126 / 73; Pulse 93; Resp 18; Temp 97.3; Pulse Ox 100% ; Pain 8/10; ll1 13:11 Pain Scale: Adult ll1 ED Course: 13:08 Patient arrived in ED. mr 13:10 Heidi Weeks [facility]-C [facility] kb 13:10 Neena Burton MD is Attending Physician. kb 13:13 Triage completed. ll1 13:14 Arm band placed on Patient placed in an exam room, on a stretcher. ll1 13:19 Shawna Castorena, RN is Primary Nurse. nj1 13:55 No provider procedures requiring assistance completed. Patient did not have IV access aa5 during this emergency room visit. Administered Medications: 13:25 Drug: Lidocaine Infiltration (1 %) 1 vials 5 ml Infiltration once; to bedside {Note: nj1 Vial given to Tracy Cordova [employer] FINAL INSPECTOR for administration.} Volume: 5 ml; Route: Infiltration; 13:56 Drug: Trimethoprim-Sulfamethoxazole PO (160 mg-800 mg (DS) 1 tablet PO once Route: PO; aa5 13:56 Follow up: Response: Medication administered at discharge. aa5 Medication: 13:55 VIS not applicable for this client. aa5 Outcome: 13:36 Discharge ordered by MD. kb 13:55 Discharged to home ambulatory, aa5 13:55 Condition: stable 13:55 Discharge instructions given to patient, Abscess dressed with gauze and tape per [employer] FINAL INSPECTOR VO. Instructed on discharge instructions, follow up and referral plans. medication usage, wound care, Demonstrated understanding of instructions, follow-up care, medications, wound care, 13:56 Patient left the ED. aa5 Signatures: Heidi Weeks FNP-C [employer]ER-Lorenza Wolfe, Reg Reg RankinKimberley RN RN aa5 Jenise Morocho RN RN ll1 Shawna Castorena, SARAY RN nj1
--- NOTE | 2023-06-16 13:37 | EDPHYS ---
Physician Documentation [facility] Name: Peter Quintana Age: 47 yrs Sex: Male : 1975 Arrival Date: 06/16/2023 Time: 13:03 Bed 14 Private MD: ED Physician Neena Burton HPI: 06/16 13:15 This 47 yrs old Male presents to ER via Ambulatory with complaints of Abscess. kb 13:15 Patient is a 47-year-old male who presents for abscess to the mid lower back that kb started 3 to 4 days prior to arrival. Denies fever. Denies discharge. 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 - Social history:: Smoking status: Patient reports the use of cigarette tobacco products, smokes one-half pack cigarettes per day. ROS: 13:15 Constitutional: Negative for fever, chills, and weight loss, kb 13:15 Skin: Positive for abscess, of the low back area, 13:15 All other systems are negative, Exam: 13:15 Constitutional: This is a well developed, well nourished patient who is awake, alert, kb and in no acute distress. Head/Face: Normocephalic, atraumatic. ENT: Moist Mucous membranes Cardiovascular: Regular rate Respiratory: Respirations even and unlabored. No increased work of breathing. Talking in full sentences MS/ Extremity: Pulses equal, no cyanosis. Neurovascular intact. Full, normal range of motion. Neuro: Awake and alert, GCS 15, oriented to person, place, time, and situation. Moves all extremities. Normal gait. 13:15 Skin: abscess, that is moderate sized, of the low back area, with drainage, with induration, Vital Signs: 13:11 BP 126 / 73; Pulse 93; Resp 18; Temp 97.3; Pulse Ox 100% ; Pain 8/10; ll1 13:11 Pain Scale: Adult ll1 Procedures: 13:35 I \T\ D: Incision and drainage was performed for an abscess of the low back area Prepped kb with Betadine, Anesthetized with 2.5 ml's 1% Lidocaine. Incised with #11 blade. Drained moderate amount purulent fluid. Dressing: sterile 4x4 gauze, the patient tolerated the procedure well. MDM: 13:10 Patient medically screened. kb 13:16 Differential diagnosis: abscess, allergic reaction, cellulitis, insect bite. Data kb reviewed: vital signs, nurses notes. Test considered but Not performed: Ultrasound US considered, but abscess is superficial . 13:35 Counseling: I had a detailed discussion with the patient and/or guardian regarding the kb historical points, exam findings, and any diagnostic results supporting the discharge/admit diagnosis, the need for outpatient follow up, a general surgeon, to return to the emergency department if symptoms worsen or persist or if there are any questions or concerns that arise at home. 06/16 13:14 Order name: I\T\D Setup; Complete Time: 13:26 kb Administered Medications: 13:25 Drug: Lidocaine Infiltration (1 %) 1 vials 5 ml Infiltration once; to bedside {Note: nj1 Vial given to Tracy Cordova [employer] for administration.} Volume: 5 ml; Route: Infiltration; 13:56 Drug: Trimethoprim-Sulfamethoxazole PO (160 mg-800 mg (DS) 1 tablet PO once Route: PO; aa5 13:56 Follow up: Response: Medication administered at discharge. aa5 Disposition Summary: 06/16/23 13:36 Discharge Ordered Notes: Location: Home kb Condition: Stable kb Diagnosis - Cutaneous abscess of back [any part, except buttock] kb Followup: kb - With: Emergency Department - When: As needed - Reason: Worsening of condition Followup: kb - With: Private Physician - When: 2 - 3 days - Reason: Recheck today's complaints, Continuance of care, Re-evaluation by your physician Discharge Instructions: - Discharge Summary Sheet kb - Skin Abscess, [id number] kb - Incision and Drainage, Care After kb Forms: - Medication Reconciliation Form kb - Thank You Letter kb - Antibiotic Education kb - Prescription Opioid Use kb - Patient Portal Instructions kb - Leadership Thank You Letter kb Prescriptions: - Bactrim DS 800-160 mg Oral Tablet - take 1 tablet ORAL route every 12 hours for 7 days; 14 tablet; Refills: 0, kb Product Selection Permitted Signatures: Heidi Weeks FNP-C FNP-Kimberley Mullen RN RN aa5 Jenise Morocho RN RN ll1 Shawna Castorena, RN RN nj1
[2023-06-16] MEDS ORDERED: LIDOCAINE 1% MPF 5 ML VIAL ONE (13:38)
[2023-06-16] MEDS ORDERED: SMZ./TMP. 800/160 MG TABLET ONE (14:01)
[2023-06-16 14:12] VITALS: BP 126/73; TEMP 97.3; O2SAT 100
== END 2023-06-16 13:56 | disposition home or self-care (01) ==
LOC: ER 13:03
PROC: 0H96XZZ Drainage of Back Skin, External Approach (ICD-10-PCS; principal; 2023-06-16)
DX: L02.212 Cutaneous abscess of back [any part, except buttock and flank] (principal); Z88.8 Allergy status to other drugs, medicaments and biological substances
CPT/HCPCS: 99283; 10060; J2001